=== PATIENT | female | born 1970 | race Caucasian/White ===

== ENCOUNTER 2021-04-04 06:17 | Day surgery (SDC) | payer OTHER, SELFPAY ==
[~2021-04-04] VITALS: Ht 149.9 cm; Wt 59.9 kg
[2021-04-04] MEDS ORDERED: MIDAZOLAM 5 MG/5 ML VIAL ONE (08:08)
[2021-04-04] MEDS ORDERED: fentaNYL citrate 0.05 MG/ML VIAL ONE (08:08)
[2021-04-04] MEDS ORDERED: diphenhydrAMINE 50 MG/ML VIAL ONE (08:08)
[2021-04-04] MEDS ORDERED: LIDOCAINE 2% 100 MG/5 ML UJET TP ONE (08:08)
[2021-04-04] MEDS ORDERED: fentaNYL citrate 0.05 MG/ML VIAL IVP ONE (09:35)
[2021-04-04] MEDS ORDERED: MIDAZOLAM 2 MG/2 ML VIAL IVP ONE (09:35)
== END 2021-04-04 10:00 | disposition home or self-care (01) ==
LOC: MDS 06:17 → MMU 06:19 → MDS 10:00
PROVIDERS: ATTEND Internal Medicine Gastroenterology
DX: K62.5 Hemorrhage of anus and rectum (principal); K63.5 Polyp of colon; R63.4 Abnormal weight loss; K63.3 Ulcer of intestine; E11.9 Type 2 diabetes mellitus without complications; Z79.84 Long term (current) use of oral hypoglycemic drugs; Z79.899 Other long term (current) drug therapy
CPT/HCPCS: 45380; 45385; 87426; J2250; J3010; J7030; J1200